=== PATIENT | female | born 1975 | race Caucasian/White ===

== ENCOUNTER 2023-03-12 10:00 | Outpatient (RCR) | payer BC, SELFPAY | END 2023-07-10 23:59 | disposition home or self-care (01) | PROVIDERS: PCP Physician Assistant; Visit Provider Physician Assistant | DX: M79.604 Pain in right leg (principal); Z51.89 Encounter for other specified aftercare | CPT/HCPCS: 97012; 97110; 97112; 97140; 97161; 97535 ==

== ENCOUNTER 2024-01-05 15:55 | Outpatient (CLI) | payer BC, SELFPAY | END 2024-01-05 15:56 | disposition home or self-care (01) | PROVIDERS: PCP Physician Assistant; Visit Provider Family Medicine | DX: R53.83 Other fatigue (principal); R35.0 Frequency of micturition; J30.89 Other allergic rhinitis; R51.9 Headache, unspecified; Z13.6 Encounter for screening for cardiovascular disorders | CPT/HCPCS: 80053; 80061; 82728; 84443; 87086 ==